=== PATIENT | female | born 1940 | race Caucasian/White ===

== ENCOUNTER → 2017-08-02 | Outpatient (CLI) | payer MEDICARE ==
[~2017-08-02] MED LIST: ADULT LOW DOSE81 MG PO; BACTRIM DS TAB1 EACH PO; LEVOTHYROXIN0.025 MG PO; METFORMIN HCL500 MG PO; REMERON15 MG PO; SERTRALINE HCL50 MG PO; SONATA5 MG PO
== END ==
LOC: M.ULTRA 07-24 15:50 → M.RAD 07-28 11:00 → M.ULTRA 11:27
DX: E03.9 Hypothyroidism, unspecified (principal); E04.2 Nontoxic multinodular goiter; R05 Cough

== ENCOUNTER → 2018-02-01 | Outpatient (CLI) | payer MEDICARE | LOC: M.RAD 15:15 | DX: Z13.820 Encounter for screening for osteoporosis (principal); E04.2 Nontoxic multinodular goiter; R59.9 Enlarged lymph nodes, unspecified; Z90.5 Acquired absence of kidney; M85.88 Other specified disorders of bone density and structure, other site ==

== ENCOUNTER → 2018-05-09 | Outpatient (CLI) | payer MEDICARE | LOC: M.RAD 14:00 | DX: Z12.31 Encounter for screening mammogram for malignant neoplasm of breast (principal) ==

== ENCOUNTER → 2018-08-23 | Outpatient (CLI) | payer OTHER | LOC: M.CT 08-09 13:30 | DX: Z13.6 Encounter for screening for cardiovascular disorders (principal) ==

== ENCOUNTER → 2019-05-10 | Outpatient (CLI) | payer MEDICARE | LOC: M.RAD 14:16 | DX: Z12.31 Encounter for screening mammogram for malignant neoplasm of breast (principal) ==

== ENCOUNTER → 2019-11-20 | Outpatient (CLI) | payer MEDICARE | LOC: M.RAD 13:30 | PROVIDERS: ATTEND Family Medicine | DX: M85.88 Other specified disorders of bone density and structure, other site (principal); R93.7 Abnormal findings on diagnostic imaging of other parts of musculoskeletal system ==

== ENCOUNTER → 2020-08-27 | Outpatient (CLI) | payer MEDICARE | LOC: M.RAD 12:51 | PROVIDERS: ATTEND Family Medicine | DX: Z12.31 Encounter for screening mammogram for malignant neoplasm of breast (principal) ==

== ENCOUNTER → 2021-03-11 | Outpatient (CLI) | payer OTHER | LOC: M.CT 03-03 11:00 | PROVIDERS: ATTEND Specialist | DX: Z13.6 Encounter for screening for cardiovascular disorders (principal) ==

== ENCOUNTER → 2021-03-25 | Outpatient (CLI) | payer MEDICARE | LOC: M.CT 13:48 | PROVIDERS: ATTEND Specialist | DX: R91.1 Solitary pulmonary nodule (principal) ==

== ENCOUNTER → 2021-05-27 | Outpatient (CLI) | payer MEDICARE ==
[2021-05-27 12:55] LABS: CREATININE 0.9 mg/dL (0.6-1.3)
== END ==
LOC: M.LAB 04-19 15:13 → M.MRI 04-29 12:30 → M.LAB 04-29 12:30 → M.MRI 04-29 13:30 → M.LAB 05-25 12:30
PROVIDERS: ATTEND Specialist
DX: M47.812 Spondylosis without myelopathy or radiculopathy, cervical region (principal); M50.323 Other cervical disc degeneration at C6-C7 level; M25.78 Osteophyte, vertebrae; M48.02 Spinal stenosis, cervical region